=== PATIENT | male | born 1990 | race Caucasian/White ===

== ENCOUNTER → 2017-04-28 | Outpatient (CLI) | payer OTHER ==
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
== END | disposition home or self-care (01) ==
LOC: RADMRIMAIN 15:41
PROVIDERS: ATTEND Internal Medicine
DX: M25.562 Pain in left knee (principal)

== ENCOUNTER 2017-06-28 17:19 | Emergency (ER) | payer OTHER ==
[2017-06-28 17:52] VITALS: BP 145/63; PULSE 85; RESP 18; TEMP 99
--- NOTE | 2017-06-28 18:46 | ED ---
ENT HPI - General Chief complaint: Dental/Oral Stated complaint: Swollen face Time Seen by Provider: 06/28/17 18:28 Source: patient, RN notes reviewed Mode of arrival: ambulatory Limitations: no limitations - History of Present Illness Initial comments: This is a 27-year-old male presents to the emergency department with chief complaint of jaw pain. Patient states for the past 3 days he has had a right lower jaw pain and swelling. Denies any drainage. Patient states that he does not believe it is related to a dental infection. Denies fever or chills. Denies chest pain, difficult breathing, abdominal pain, nausea or vomiting, diarrhea or constipation. - Related Data Previous Rx's Medication Instructions Recorded Penicillin V Potassium [Pen Vee K] 500 mg PO QID 10 Days tab 06/28/17 Allergies Allergy/AdvReac Type Severity Reaction Status Date / Time No Known Allergies Allergy Verified 06/28/17 17:52 Review of Systems ROS Statement: Those systems with pertinent positive or pertinent negative responses have been documented in the HPI. ROS Other: All systems not noted in ROS Statement are negative. Past Medical History Past Medical History: No Reported History History of Any Multi-Drug Resistant Organisms: None Reported Past Surgical History: No Surgical Hx Reported Past Psychological History: No Psychological Hx Reported Smoking Status: Current every day smoker Past Alcohol Use History: None Reported Past Drug Use History: Marijuana General Exam - General Exam Comments Initial Comments: General: Awake and alert, well-developed; in no apparent distress. HEENT: Head atraumatic, normocephalic. Pupils are equal, round and reactive to light. Extraocular movements intact. Oropharynx moist without erythema or exudate. Poor dentition throughout. Tooth #30 is fractured. Gumline surrounding tooth #30 is tender on palpation. No masses or areas of fluctuance noted. Neck: Supple. Normal ROM. No adenopathy. Cardiovascular: Regular rate and rhythm. No murmurs, rubs or gallops. Chest symmetrical. Respiratory: Lungs clear to auscultation bilaterally. No wheezes, rales or rhonchi. Normal respiratory effort with no use of accessory muscles. Musculoskeletal: Normal ROM, no tenderness bilateral upper and lower extremities. Ambulating normally. Skin: [place], warm and dry without rashes or lesions. Neurological: Alert and oriented x3. CN II-XII grossly intact. Speech is fluent and answers are appropriate. No focal neuro deficits. Psychiatric: Normal mood and affect. No overt signs of depression or anxiety noted. Limitations: no limitations Course Vital Signs 06/28/17 17:51 Temperature 99 F Pulse Rate 85 Respiratory 18 Rate Blood Pressure 145/63 O2 Sat by Pulse 99 Oximetry Medical Decision Making - Medical Decision Making This is a 27-year-old male who presents to the emergency department with chief complaint of right jaw pain and swelling. Patient has a fractured tooth with surrounding gumline that is tender. No abscess is noted. Patient states that he does have a dentist that he can follow up with tomorrow. He will be started on antibiotics. Patient states he already has a prescription for ibuprofen 800 at home that he takes for a recent injury. Patient eloped from the emergency department. I wrote a prescription for penicillin VK that will be mailed to the patient. Disposition Clinical Impression: Fracture of tooth, Toothache Disposition: HOME SELF-CARE Instructions: Toothache (ED) Additional Instructions: Please take medications as prescribed. Please follow up with primary care provider within 1-2 days. Return to emergency department if symptoms should worsen or any concerns arise. Prescriptions: Penicillin V Potassium [Pen Vee K] 500 mg PO QID 10 Days tab Referrals: Mele Holly MD [Primary Care Provider] - 1-2 days Time of Disposition: 18:51
== END 2017-06-28 18:59 | disposition home or self-care (01) ==
LOC: EC 17:19
DX: S02.5XXA Fracture of tooth (traumatic), initial encounter for closed fracture (principal); F17.200 Nicotine dependence, unspecified, uncomplicated
CPT/HCPCS: 99282

== ENCOUNTER 2021-05-20 19:18 | Emergency (ER) | payer OTHER ==
[2021-05-20 22:09] VITALS: BP 147/83; PULSE 93; RESP 22; TEMP 98.4
[2021-05-20 22:48] LABS: Appearance,Urine Turbid (Clear); Bacteria,Urine Moderate /hpf; Bilirubin,Urine Negative (Negative); Blood,Urine Negative (Negative); Budding Yeast,Urine Many /hpf; Color,Urine Yellow; Glucose,Urine (UA) Negative (Negative); Ketones,Urine Negative (Negative); Leukocyte Esterase,Urine Negative (Negative); Mucus,Urine Rare /hpf; Nitrite,Urine Negative (Negative); Protein,Urine Trace (Negative); RBC,Urine 3 /hpf (0-5); Specific Gravity,Urine 1.024 (1.001-1.035); Urobilinogen,Urine <2.0 mg/dL (<2.0); WBC,Urine 13 /hpf (0-5)
[2021-05-20] MEDS ORDERED: metroNIDAZOLE 500 MG TAB PO STA (23:12)
--- NOTE | 2021-05-20 23:29 | ED ---
Male Urogenital HPI - General Chief complaint: Urogenital Stated complaint: STI/STD Test Time Seen by Provider: 05/20/21 22:58 Source: patient Mode of arrival: ambulatory Limitations: no limitations - History of Present Illness Initial comments: This patient is a 31-year-old man who presents with complaint that he has had suspected trichomonas infection. Patient states that his significant other told him that she had been diagnosed with Trichomonas. The patient states that he is not having any symptoms currently. Denies fever or chills, dysuria, urethral discharge, abdominal or groin pain. MD Complaint: other -: unknown Severity scale (1-10): 0 Improves with: none Worsens with: none Reports: denies other symptoms - Related Data Sexually active: Yes Previous Rx's Medication Instructions Recorded Penicillin V Potassium [Pen Vee K] 500 mg PO QID 10 Days tab 06/28/17 Allergies Allergy/AdvReac Type Severity Reaction Status Date / Time No Known Allergies Allergy Verified 05/20/21 22:09 Review of Systems ROS Statement: Those systems with pertinent positive or pertinent negative responses have been documented in the HPI. ROS Other: All systems not noted in ROS Statement are negative. Constitutional: Denies: fever, chills Respiratory: Denies: cough, dyspnea Gastrointestinal: Denies: abdominal pain Genitourinary: Denies: dysuria, frequency, discharge, testicular pain Skin: Denies: rash Past Medical History Past Medical History: No Reported History History of Any Multi-Drug Resistant Organisms: None Reported Past Surgical History: No Surgical Hx Reported Past Psychological History: No Psychological Hx Reported Smoking Status: Current every day smoker Past Alcohol Use History: Occasional Past Drug Use History: Marijuana General Exam Limitations: no limitations General appearance: alert, in no apparent distress Skin exam: Present: warm, dry, intact Course Vital Signs 05/20/21 22:04 Temperature 98.4 F Pulse Rate 93 Respiratory 22 Rate Blood Pressure 147/83 O2 Sat by Pulse 100 Oximetry Medical Decision Making - Medical Decision Making Following discussion with patient, he elects to have empiric treatment pending the results, given the probable exposure. Discussed appropriate further care and follow-up. - Lab Data Lab Results 05/20/21 Range/Units 22:34 Urine Color Yellow Urine Appearance Turbid (Clear) Urine pH 7.0 (5.0-8.0) Ur Specific [place] 1.024 (1.001-1.035) Urine Protein Trace H (Negative) Urine Glucose (UA) Negative (Negative) Urine Ketones Negative (Negative) Urine Blood Negative (Negative) Urine Nitrite Negative (Negative) Urine Bilirubin Negative (Negative) Urine Urobilinogen <2.0 (<2.0) mg/dL Ur Leukocyte Esterase Negative (Negative) Urine RBC 3 (0-5) /hpf Urine WBC 13 H (0-5) /hpf Urine WBC Clumps Many H (None) /hpf Urine Bacteria Moderate H (None) /hpf Urine Mucus Rare H (None) /hpf Urine Yeast (Budding) Many H (None) /hpf Disposition Clinical Impression: Trichomonas exposure Disposition: HOME SELF-CARE Condition: Good Instructions (If sedation given, give patient instructions): Trichomoniasis (ED ) Is patient prescribed a controlled substance at d/c from ED?: No Referrals: Mele Holly MD [Primary Care Provider] - 1-2 days
[2021-05-21 14:28] LABS: C. trachomatis,PCR Negative (Neg,Equiv); Chlamydia trachomatis Source Urine; N. gonorrhoeae,PCR Negative (Neg,Equiv); Neisseria Source Urine
== END 2021-05-20 23:55 | disposition home or self-care (01) ==
LOC: EC 19:18
DX: Z20.2 Contact with and (suspected) exposure to infections with a predominantly sexual mode of transmission (principal); F17.200 Nicotine dependence, unspecified, uncomplicated
CPT/HCPCS: 81001; 87086; 87491; 87591; 99282

== ENCOUNTER 2022-01-26 09:41 | Emergency (ER) | payer OTHER ==
[2022-01-26 09:47] VITALS: BP 145/77; PULSE 72; RESP 18; TEMP 98
[2022-01-26] MEDS ORDERED: KETOROLAC 15 MG/ML 1 ML VIAL IM STA (10:04)
--- NOTE | 2022-01-26 10:10 | ED ---
ENT HPI - General Chief complaint: ENT Stated complaint: Facial Swelling Time Seen by Provider: 01/26/22 09:48 Source: patient, RN notes reviewed Mode of arrival: ambulatory Limitations: no limitations - History of Present Illness Initial comments: This is a 31-year-old male who presents to the emergency department for left- sided facial pain and swelling. States that yesterday he noticed an area of firmness to the left cheek. Overnight, his symptoms got worse, when he woke up this morning, he noted an increase in swelling to the left cheek with associated pain. Denies any dental pain. Denies any difficulty breathing or visual changes. He has not taken anything for his pain. Denies any fevers, chills, sore throat, cough, dyspnea, chest pain, palpitations, abdominal pain, nausea, vomiting, diarrhea, back pain, or headaches. MD complaint: other (left cheek pain and swelling) Context- Dental: history of dental caries - Related Data Previous Rx's Medication Instructions Recorded Penicillin V Potassium [Pen Vee K] 500 mg PO QID 10 Days tab 06/28/17 Penicillin V Potassium [Pen Vee K] 500 mg PO QID 10 Days #40 tablet 01/26/22 Allergies Allergy/AdvReac Type Severity Reaction Status Date / Time No Known Allergies Allergy Verified 01/26/22 09:47 Review of Systems ROS Statement: Those systems with pertinent positive or pertinent negative responses have been documented in the HPI. ROS Other: All systems not noted in ROS Statement are negative. Past Medical History Past Medical History: No Reported History History of Any Multi-Drug Resistant Organisms: None Reported Past Surgical History: No Surgical Hx Reported Past Psychological History: No Psychological Hx Reported Smoking Status: Current every day smoker Past Alcohol Use History: Occasional Past Drug Use History: Marijuana General Exam Limitations: no limitations General appearance: alert, in no apparent distress Head exam: Present: atraumatic, normocephalic, normal inspection ENT exam: Present: other (Multiple dental caries. There is an area of firmness with swelling in the left cheek, consistent with possible dental abscess.) Neck exam: Present: normal inspection. Absent: tenderness, meningismus, lymphadenopathy Respiratory exam: Present: normal lung sounds bilaterally. Absent: respiratory distress, wheezes, rales, rhonchi, stridor Cardiovascular Exam: Present: regular rate, normal rhythm, normal heart sounds. Absent: systolic murmur, diastolic murmur, rubs, gallop, clicks Neurological exam: Present: alert, oriented X3, CN II-XII intact Psychiatric exam: Present: normal affect, normal mood Skin exam: Present: warm, dry, intact, normal color. Absent: rash Course Vital Signs 01/26/22 09:44 Temperature 98 F Pulse Rate 72 Respiratory 18 Rate Blood Pressure 145/77 O2 Sat by Pulse 100 Oximetry Medical Decision Making - Medical Decision Making This is a 31-year-old male who presents to the emergency department for left- sided facial pain and swelling. Patient has multiple dental caries. Patient's presentation and physical examination are consistent with a dental abscess. Prescription for Pen-Vee K was provided. Advised alternating with ibuprofen and Tylenol for pain relief and applying warm compresses. Also instructed him to become established with a dentist for further management of his dental caries. Proper oral hygiene was also discussed. Return precautions reviewed in depth, the patient is instructed to return to the emergency department with any new, worsening, or concerning symptoms. Patient verbalized understanding. This case was discussed in detail with the attending ED physician. Presentation, findings, and treatment plan discussed in detail as well. Disposition Clinical Impression: Dental abscess Disposition: HOME SELF-CARE Instructions (If sedation given, give patient instructions): Dental Abscess (ED) Additional Instructions: Return to the emergency department with any new, worsening, or concerning symptoms. Take the antibiotic as prescribed for 10 days. Alternate with ibuprofen and Tylenol as needed for pain relief. You can also try applying warm compresses. Follow-up with a dentist. Prescriptions: Penicillin V Potassium [Pen Vee K] 500 mg PO QID 10 Days #40 tablet Is patient prescribed a controlled substance at d/c from ED?: No Referrals: Mele Holly MD [Primary Care Provider] - 1-2 days
== END 2022-01-26 10:36 | disposition home or self-care (01) ==
LOC: EC 09:41
DX: K02.9 Dental caries, unspecified (principal); K04.7 Periapical abscess without sinus; F17.200 Nicotine dependence, unspecified, uncomplicated
CPT/HCPCS: 96372; 99284; 99283; J1885